=== PATIENT | female | born 2000 | race American Indian/Alaskan Native ===

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

== ENCOUNTER 2021-11-20 01:12 | Emergency (ER) | payer MEDICAID ==
[2021-11-20 01:56] VITALS: BP 114/69
[2021-11-20] MEDS ORDERED: ASPIRIN 81 MG TAB CHEW PO ONE (01:57)
--- NOTE | 2021-11-20 02:37 | Cat Scan Report ---
CT head without contrast INDICATION : Headache. TECHNIQUE: Axial imaging performed from the skull apex through the skull base without the use of con trast. All CT scans at this location are performed using CT dose reduction for ALARA by means of aut omated exposure control. COMPARISON: None FINDINGS: Parenchyma: No mass, stroke or hemorrhage. Ventricles: Ventricles are normal in size and appear symmetric. Soft tissues: Soft tissues including the orbits appear normal. Bones: No acute osseous abnormality. Sinuses: Mucous retention cyst right maxillary sinus. IMPRESSION: No acute abnormality. Signer Name: Júnior Ferguson MD Signed: 11/20/2021 2:32 AM Workstation Name: [id number]
[2021-11-20 03:54] LABS: Blood Urea Nitrogen 16 mg/dL (7-17); Calcium 9.6 mg/dL (8.4-10.2); Hemolysis Index 0
[2021-11-20 03:59] LABS: BUN/Creatinine Ratio 27
[2021-11-20 04:01] LABS: Basophils % (Auto) 0.3 % (0.0-1.8); Eosinophils % (Auto) 0.6 % (0.0-4.3); Hematocrit 37.2 % (30.3-42.9); Hemoglobin 12.3 gm/dl (10.1-14.3); Lymphocytes # (Auto) 1.7 K/mm3 (1.2-5.4); Lymphocytes % (Auto) 24.5 % (13.4-35.0); Mean Corpuscular HGB Conc 33 % (30-34); Mean Corpuscular Volume 79 fl (79-97); Monocytes # (Auto) 0.4 K/mm3 (0.0-0.8); Monocytes % (Auto) 6.1 % (0.0-7.3); Platelet Count 292 K/mm3 (140-440); Red Cell Distribution Width 13.3 % (13.2-15.2)
--- NOTE | 2021-11-21 08:27 | Electrocardiograph Report ---
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
== END 2021-11-20 07:00 | disposition left against medical advice (07) ==
LOC: ED 01:12
DX: R51.9 Headache, unspecified (principal); R63.0 Anorexia; Z53.21 Procedure and treatment not carried out due to patient leaving prior to being seen by health care provider
CPT/HCPCS: 36415; 70450; 80048; 85025; 93005